=== PATIENT | male | born 1940 | race Caucasian/White ===

== ENCOUNTER 2017-03-11 12:37 | Inpatient (IN) ==
[2017-03-11] MEDS ORDERED: ONDANSETRON 4 MG/2 ML VIAL IV PRN (12:57)
[2017-03-11] MEDS ORDERED: ACETAMINOPHEN 325 MG TABLET PO PRN (12:57)
[2017-03-11] MEDS ORDERED: DOCUSATE SODIUM 100 MG CAPSULE PO PRN (12:57)
[2017-03-11 15:36] LABS: Basophils % 0.5 % (0.0-0.8); Eosinophils # 0.2 10*3/uL (0.0-0.87); Hematocrit 39.2 VOL% (42.0-52.0); Hemoglobin 12.7 GM/DL (14.0-18.0); Immature Granulocytes % 0.4 %; Immature Granulocytes Absolute 0.03 #; Lymphocytes # 1.3 10*3/uL (1.4-4.0); Lymphocytes % 16.3 % (21.2-54.2); Mean Corpuscular HGB Conc 32.4 GM/DL (32-36); Mean Corpuscular Hemoglobin 31 PG (27-34); Monocytes # 0.6 10*3/uL (0.11-0.8); Monocytes % 7.9 % (1.7-12.7); Neutrophils # 5.6 10*3/uL (1.4-7.4); Neutrophils % 72.9 % (38.7-73.9); Platelet Count 220 T/CUMM (130-400); Red Blood Count 4.04 MC/CUMM (3.8-5.5); Red Cell Distribution Width 15.6 % (9.3-17.3); White Blood Count 7.7 T/CUMM (4-12)
[2017-03-11 15:59] LABS: Bilirubin,Total 0.8 MG/DL (0.2-1.0); Calcium 8.6 MG/DL (8.5-10.1); Magnesium 2.5 MG/DL (1.8-2.4); Osmolality,Calculated 276.5 MOS/KG (273-304); Potassium 3.8 MMOL/L (3.5-5.1); Total Protein 6.8 G/DL (6.4-8.3)
[2017-03-11 16:01] LABS: Troponin I Only < 0.015 NG/ML (0.00-0.045)
[2017-03-11] MEDS: ENOXAPARIN 40 MG/0.4 ML SYRINGE SUBCUT SCH (16:06)
[2017-03-11 16:07] LABS: Folate 6.1 NG/ML (5.4-24.0)
[2017-03-11 16:15] LABS: Free T4 (Free Thyroxine) 0.81 NG/DL (0.76-1.46); Thyroid Stimulating Hormone 3.06 uIU/ml (0.358-3.74)
[2017-03-11] MEDS: POTASSIUM CHLORIDE INJ 10 MEQ in SODIUM CHLORIDE 0.9% 1,000 ML IV SCH (17:06)
[2017-03-11 17:32] LABS: Apearance,Urine CLEAR (Clear); Bilirubin,Urine Negative (Negative); Blood, Urine Negative (Negative); Glucose,Urine (UA) Negative (Negative); Ketones,Urine 20 mg/dL (Negative); Mucus,Urine Few /LPF (Occasional); Nitrite,Urine Negative (Negative); Protein,Urine Negative; RBC,Urine 1 /HPF (0-4); Squamous Epithelial Cell,Urine Occasional /HPF (0-10); Urine Color Yellow (Yellow); Urine Specific Gravity 1.014 (1.001-1.035); Urine Urobilinogen < 2.0 EU/DL (0.2-1.0); WBC,Urine 1 /HPF (0-6)
--- NOTE | 2017-03-11 17:38 | XRay Report ---
2 view chest. Indication: Shortness of breath. Comparison: The heart is normal in size. Post median sternotomy. The lung ramachandran are hyperexpanded. There are linear areas of atelectasis present in both lung bases. No consolidation, pneumothorax, or pleural effusion. Nodular densities project over the lung bases, likely representing nipple shadows. Impression: Hyperexpanded lung ramachandran, which may be due to air trapping. Areas of atelectasis are also seen. PROCEDURE INTERPRETED AT [facility] DEPARTMENT OF RADIOLOGY Final Report Signed by: Dr. Swetha Rosenberg
--- NOTE | 2017-03-11 17:58 | Family Practice History&Phys ---
Assessment and Plan (1) Confusion with non-focal neuro exam Status: Acute Assessment and plan: 03/11/2017 I am going to get neurology to see and appreciate their assistance Current Visit: Yes (2) S/P ventriculoperitoneal shunt Status: Acute Assessment and plan: 03/11/2017. I believe the shunt is functioning appropriately but will get neurology for further clarification Current Visit: Yes (3) Bronchiectasis Status: Acute Assessment and plan: 03/11/2017. Seems to be breathing easily I will continue on current medicines if he has any issues I will get Dr. 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 As above. I will go ahead and add meclizine to his regimen Current Visit: Yes History of Present Illness Chief complaint: Staggering, confused History of present illness: Mr. Lopez is a 76 year old male Who I have never seen. He was scheduled to see Dr. Johns on 613 this month. Nonetheless he came in today with his who stated that he has been confused and somewhat staggering and very wobbly for the past week or so. 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 He is unable to perform his activities of daily living as he normally does which has only occurred over the last several days. Historically he does hav a ventricular shunte which is working well per recent CT scan done in the emergency room. (Was seen this past weekend and all of his lab and studies were essentially normal, in addition to a CT of the head. His states that he has had and does have some occasional double vision but this is very equivocal. I do appreciate significant nystagmus when he looks to the left and or to the right. In addition he has got a slightly irregular heartbeat but an EKG done in the clinic revealed sinus arrhythmia. He is not in atrial fib at this time. (Will repeat an EKG in the hospital) Historically has had a history of coronary artery disease, hypertension, hypercholesterolemia as well as bronchitis and bronchiectasis and has been seen by Dr. Judah Aguilar. If he displays any of these symptoms I will get him to see him. At this time he is taking medication for this. Vital signs in the clinic were normal, blood pressure was 120/68, temperature 97.6, pulse 58, oxygen sats 94%. Because of his new onset symptoms I am going to admit him and get neurology to see him and I do appreciate their assistance on this case. I am getting lab as well Home Medications Medication Instructions Recorded Confirmed Type Losartan Potassium 200 mg PO BEDTIME 03/08/17 03/11/17 History Metoprolol Tartrate 50 mg PO BEDTIME 03/08/17 03/11/17 History Ondansetron Tab [Zofran Tab] 4 mg PO Q6H PRN #20 tablet 03/08/17 03/11/17 Rx Pravastatin Sodium 80 mg PO BEDTIME 03/08/17 03/11/17 History Tiotropium Inhalation [Spiriva 18 mcg INH QAM 03/08/17 03/11/17 History Handihaler] Allergies Allergy/AdvReac Type Severity Reaction Status Date / Time No Known Allergies Allergy Unverified 03/08/17 09:23 12 point system: reviewed and no additional remarkable complaints except as stated (That mentioned in the history and physical.) - EENT Eyes: Present: diplopia Nose, mouth and throat: Absent: epistaxis - Cardiovascular Cardiovascular: Absent: chest pain at rest - Respiratory Respiratory: Present: cough (This is chronic) - Genitourinary Genitourinary: Absent: dysuria - Neurological Neurological: Present: abnormal gait, confusion. Absent: headache(s) Medical,Surgical,& Family Hx - Medical History Cardio: History of: Cerebrovascular Disease, Cardiovascular Problems HEENT: History of: Eye Problem Endocrine: History of: Dyslipidemia Respiratory: History of: COPD Other: History of: Cancer (skin cancer) - Surgical History Cardiac Surgeries: Sugical HX of: Femoral-Popliteal Bypass Graft, Cardiac Surgery (triple bypass) HEENT Surgeries: Surgical HX of: Tonsilectomy & Adenoidectomy Abdominal Surgeries: Surgical HX of: Abdominal Surgery (right colectomy), Colonoscopy - Social History Smoking Status: Former smoker Exam - Constitutional Vitals: Period Temp Pulse Resp BP Sys/Covarrubias Pulse Ox Last 24 Hr 97.4 F-98.0 F 63-83 18-20 133-136/71-71 93-95 Exam: Generally patient is able to answer all questions in a fairly cognitive state. He is a little bit slow but with encouragement answers appropriately. Has generalized mild weakness but is able to follow all commands and able to ambulate with assistance. It is hard to art librarian cerebellar findings at this time. HEEntpupils are equally reactive to light. He does have nystagmus when he looks both to the right and left. Obvious on cranial nerve deficits are appreciated I do not see any drooping of his face and he has good gag and swallow reflexes.. He is able to cough on command and has good shrug. Neck is supple trachea midline Cardiovascular rate is irregular but is sinus rhythm per EKG. Lungs are generally clear except for a few basilar rales. I do not appreciate any wheezing at this time. He does have an occasional loose cough. Abdomen soft nondistended nontender. There is a ventriculoperitoneal shunt which is apparently functioning well as he has no enlarged ventricles. Extremities no clubbing cyanosis or edema. Neurologically he is somewhat wobbly on gait but is able to get up with only little assistance. Please see above but he has no obvious cranial nerve deficits at this time. I do not appreciate any lateralizing signs Results - Labs CBC & BMP: 03/11/17 14:43 03/11/17 14:43
[2017-03-11] MEDS: MECLIZINE 25 MG TABLET PO SCH (21:11)
[2017-03-11] MEDS: LOSARTAN 50 MG TABLET PO SCH (21:13)
[2017-03-11] MEDS: PRAVASTATIN 40 MG TABLET PO SCH (21:13)
[2017-03-11] MEDS: METOPROLOL TARTRATE 50 MG TABLET PO SCH (21:13)
--- NOTE | 2017-03-12 04:47 | EKG Report ---
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
[2017-03-12] MEDS: POTASSIUM CHLORIDE INJ 10 MEQ in SODIUM CHLORIDE 0.9% 1,000 ML IV SCH ×2 (06:30→19:38)
[2017-03-12] MEDS: IPRATROPIUM 500 MCG/2.5 ML NEB RESP TX SCH ×4 (07:21→19:52)
[2017-03-12] MEDS: MECLIZINE 25 MG TABLET PO SCH ×2 (08:36→21:10)
[2017-03-12] MEDS: PANTOPRAZOLE 40 MG TABLET PO SCH (08:36)
[2017-03-12] MEDS: MULTIVITAMIN (CENTRUM) TABLET PO SCH (08:36)
--- NOTE | 2017-03-12 08:41 | Family Practice Progress Note ---
Family Practice - PN: Subj Interval history: Patient seen this morning. He is fairly alert. Does have intermittent confusion. He does also have some nystagmus on exam but not having double vision at present. Is "not himself" yet per his . His lab was noted to be okay. I am going to get neurology to see him today for advice regarding shunt functioning properly. states that this was the problem before when he got confused and had similar problems. Does have a chronic cough but she states this is pretty much baseline at present. I am going to hold off respiratory at this time. Exam (Progress Note) - Constitutional Vitals: Period Temp Pulse Resp BP Sys/Covarrubias Pulse Ox Last 24 Hr 97.4 F-98.5 F 56-83 18-20 133-149/71-79 93-97 Exam: Generally patient is able to answer all questions. He continues a little bit slow. Has generalized mild weakness . HEEntpupils are equally reactive to light. He continues to have nystagmus when he looks both to the right and left. No obvious on cranial nerve deficits are appreciated. He is able to cough on command and has good shrug. Neck is supple trachea midline Cardiovascular rate is irregular but is sinus rhythm per EKG. Lungs are generally clear except for a few basilar rales. He does have an occasional loose cough. Abdomen soft nondistended nontender. There is a ventriculoperitoneal shunt which is questionably functioning well as he has no enlarged ventricles. Extremities no clubbing cyanosis or edema. Neurologically he is somewhat wobbly on gait but is able to get up with only little assistance. Please see above but he has no obvious cranial nerve deficits at this time. I do not appreciate any lateralizing signs Results - Labs CBC & BMP: 03/11/17 14:43 03/11/17 14:43 Assessment and Plan (1) Confusion with non-focal neuro exam Status: Acute Assessment and plan: 03/11/2017 I am going to get neurology to see and appreciate their assistance 03/12/2017: Neurology to see patient Current Visit: Yes (2) S/P ventriculoperitoneal shunt Status: Acute Assessment and plan: 03/11/2017. I believe the shunt is functioning appropriately but will get neurology for further clarification 03/12/2017: Going to get neurology for further clarification of this. Recent CT was normal without ventricular enlargement Current Visit: Yes (3) Bronchiectasis Status: Acute Assessment and plan: 03/11/2017. Seems to be breathing easily I will continue on current medicines if he has any issues I will get Dr. 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 As above. I will go ahead and add meclizine to his regimen 03/12/2017: Patient continues to have nystagmus this morning. He is not having any diplopia Current Visit: Yes
[2017-03-12] MEDS: ENOXAPARIN 40 MG/0.4 ML SYRINGE SUBCUT SCH (13:56)
--- NOTE | 2017-03-12 15:43 | Neurology Consult Note ---
History of Present Illness History of present illness: Mr. 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 He states that he is normally very active, plays ping-pong and typically drives himself to the [employer]oodoo. He is unable to perform his activities of daily living as he normally does which has only occurred over the last several days. Historically he does have a ventricular shunt which is working well per recent CT scan done in the emergency room couple of days ago. Was seen this past weekend and all of his lab and studies were essentially normal, in addition to a CT of the head. She reported that he has been having off and on double vision. In addition he has got a slightly irregular heartbeat but an EKG done in the clinic revealed sinus arrhythmia. Home Medications Medication Instructions Recorded Confirmed Type Losartan Potassium 200 mg PO BEDTIME 03/08/17 03/11/17 History Metoprolol Tartrate 50 mg PO BEDTIME 03/08/17 03/11/17 History Ondansetron Tab [Zofran Tab] 4 mg PO Q6H PRN #20 tablet 03/08/17 03/11/17 Rx Pravastatin Sodium 80 mg PO BEDTIME 03/08/17 03/11/17 History Tiotropium Inhalation [Spiriva 18 mcg INH QAM 03/08/17 03/11/17 History Handihaler] Allergies Allergy/AdvReac Type Severity Reaction Status Date / Time No Known Allergies Allergy Unverified 03/08/17 09:23 12 point system: reviewed and no additional remarkable complaints except as stated Medical,Surgical,& Family Hx - Medical History Cardio: History of: Cerebrovascular Disease, Cardiovascular Problems HEENT: History of: Eye Problem Endocrine: History of: Dyslipidemia Respiratory: History of: COPD Other: History of: Cancer (skin cancer) - Surgical History Cardiac Surgeries: Sugical HX of: Femoral-Popliteal Bypass Graft, Cardiac Surgery (triple bypass) HEENT Surgeries: Surgical HX of: Tonsilectomy & Adenoidectomy Abdominal Surgeries: Surgical HX of: Abdominal Surgery (right colectomy), Colonoscopy - Social History Smoking Status: Former smoker Exam - Constitutional Vitals: Period Temp Pulse Resp BP Sys/Covarrubias Pulse Ox Last 24 Hr 97.4 F-98.5 F 51-84 16-20 120-149/63-86 91-99 Exam: GENERAL: Patient is in no acute distress. NECK: Neck is supple. There is no JVD. No carotid bruits present. No thyroid masses. CVS: First and second heart sounds are normal. There is no S3 present. Regular rate and rhythm. RESPIRATORY: Lungs are clear to auscultation without any rales or rhonchi. ABDOMEN: Soft and non-tender. Bowel sounds are present. There is no hepatosplenomegaly. EXT: There is no palpable edema. Peripheral pulses are present. Skin: No rashes Central Nervous system: General: Alert, awake and Oriented x 3 Speech: Fluent Comprehension: Intact and normal Facial expressions: Normal Cranial Nerves: CN1/Olfactory: Normal CN II/ Optic: Normal, Visual Irving unreliable CN III, and : AILYN & EOMI, bilateral horizontal sustained end gaze nystagmus CN V: Normal & intact CN VII: face is symmetric CNVIII: Normal CN XI/X/XI/XII: Intact and Normal Motor: Bulk and Tone is normal. Strength in the right 5/5 Strength in the left 5/5 Sensory: Grossly intact for all the modalities of PP, LT and temp sense Reflexes: 1+ and symmetrical Cerebellar function: Normal finger to nose and heel to silva testing. Toes: Equivocal Gait: Markedly broad-based gait. Significant ataxia during walking Results - Labs CBC & BMP: 03/11/17 14:43 03/11/17 14:43 Assessment and Plan (1) Cerebrovascular accident involving posterior circulation Status: Acute Assessment and plan: Xarelto [address] angiogram [place] and carotid artery Lipid panel OLVIN Consult TMR Thank you for the consult Current Visit: Yes (2) S/P ventriculoperitoneal shunt Status: Acute Current Visit: Yes
[2017-03-12] MEDS ORDERED: CYANOCOBALAMIN 1000 MCG/1 ML VIAL IM SCH (16:00)
[2017-03-12] MEDS: RIVAROXABAN 20 MG TABLET PO SCH (17:17)
[2017-03-12 20:03] LABS: Risk Ratio 4.55; VLDL CHOLESTEROL 16.6 MG/DL
[2017-03-12] MEDS: PRAVASTATIN 40 MG TABLET PO SCH (21:12)
[2017-03-12] MEDS: METOPROLOL TARTRATE 50 MG TABLET PO SCH (21:12)
[2017-03-12] MEDS: LOSARTAN 50 MG TABLET PO SCH (21:14)
[2017-03-13] MEDS: IPRATROPIUM 500 MCG/2.5 ML NEB RESP TX SCH ×4 (07:04→20:29)
--- NOTE | 2017-03-13 07:12 | CT Report ---
CT head/brain wo con Indication: CVA Comparison: CT brain dated March 08, 2017 Technique: Multiple axial tomographic images of the brain were obtained without the use of intravenous contrast. Findings: Parietal approach ventriculostomy catheter appears grossly unchanged. Considering change in technique, there has been no significant change in mild prominence of bilateral lateral and third ventricles. Moderate periventricular and subcortical hypoattenuation noted which is nonspecific but consistent with chronic microvascular ischemic change. Demyelinating process and vasculitis less likely considerations. There is no evidence of acute intracranial hemorrhage or hydrocephalus. Moderate global volume loss present. Midline structures are nondisplaced. Partial opacification of the bilateral maxillary sinuses consistent with paranasal sinus disease. IMPRESSION: No significant change from March 08, 2017 with findings as above. The CT exam was performed using one or more of the following dose reduction techniques: Automated exposure control, adjustment of the mA and/or kV according to patient size, or use of iterative reconstruction technique. PROCEDURE INTERPRETED AT [facility] DEPARTMENT OF RADIOLOGY Final Report Signed by: Dr Amol Jewell
--- NOTE | 2017-03-13 09:22 | Neurology Progress Note ---
Neurology - PN : Subjective Interval history: Patient seems to be doing better. Able to get up and take a few steps. No new problems reported. CT angiogram and echocardiogram is pending Exam (Progress Note) - Constitutional Vitals: Period Temp Pulse Resp BP Sys/Covarrubias Pulse Ox Last 24 Hr 97.3 F-98.5 F 53-84 16-20 116-139/63-78 95-99 Exam: GENERAL: Patient is in no acute distress. NECK: Neck is supple. There is no JVD. No carotid bruits present. No thyroid masses. CVS: First and second heart sounds are normal. There is no S3 present. Regular rate and rhythm. RESPIRATORY: Lungs are clear to auscultation without any rales or rhonchi. ABDOMEN: Soft and non-tender. Bowel sounds are present. There is no hepatosplenomegaly. EXT: There is no palpable edema. Peripheral pulses are present. Skin: No rashes Central Nervous system: General: Alert, awake and Oriented x 3 Speech: Fluent Comprehension: Intact and normal Facial expressions: Normal Cranial Nerves: CN1/Olfactory: Normal CN II/ Optic: Normal, Visual Irving unreliable CN III, and : AILYN & EOMI, bilateral horizontal sustained end gaze nystagmus CN V: Normal & intact CN VII: face is symmetric CNVIII: Normal CN XI/X/XI/XII: Intact and Normal Motor: Bulk and Tone is normal. Strength in the right 5/5 Strength in the left 5/5 Sensory: Grossly intact for all the modalities of PP, LT and temp sense Reflexes: 1+ and symmetrical Cerebellar function: Normal finger to nose and heel to silva testing. Toes: Equivocal Gait: Markedly broad-based gait. Significant ataxia during walking Results - Labs CBC & BMP: 03/11/17 14:43 03/11/17 14:43 Assessment and Plan (1) Cerebrovascular accident involving posterior circulation Status: Acute Assessment and plan: Xarelto [address] mg p[address] daily For CT angiogram and OLVIN today. For TMR placement by Thursday Current Visit: Yes (2) S/P ventriculoperitoneal shunt Status: Acute Assessment and plan: This was placed in 1980s and shunt seems to be working well Current Visit: Yes
--- NOTE | 2017-03-13 09:30 | Discharge Summary ---
Hospital Course - Hospital Course Hospital Course: Patient came in to the hospital from my clinic with a change in his mental status and also the fact that he was having some unsteady gait. He had had a cerebellar stroke. He has been doing fairly well since then and just had a OLVIN done, CT angiogram of head pending. We will try to get him to [facility] entered I am doing my discharge orders now. 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 Status: Chronic Specialty Discharge - Follow Up or Referrals Follow up with: Joel Cruz DO [Physician] - (post dischaarge from rehab ) Saw Hinojosa MD [Physician] - (6 months ) Discharge Plan - Discharge Data Disposition: Disch/Xfer-Ip Rehab Fac Condition at Discharge: Stable Discharge Diet: other (per speech therapy) Activity: as per physical therapy Hygiene: no restrictions Weight Bearing at Discharge: weight bear as tolerated Driving: other Contact your physician if you experience:: Redness or swelling, Bleeding - Discharge Medications New Docusate Sodium Cap [Colace Cap] 100 mg PO BID PRN capsule PRN Reason: Constipation Ondansetron Inj [Zofran Inj] 4 mg IV Q6H PRN vial PRN Reason: Nausea/Vomiting Rivaroxaban [Xarelto] 20 mg PO DAILY W/SUPPER tablet Cyanocobalamin Inj [Vitamin B12 Inj] 1,000 mcg IM Q7DAY vial Multivitamin (Centrum) [Centrum Tab] 1 tablet PO DAILY tablet Continue Pravastatin Sodium 80 mg PO BEDTIME Losartan Potassium 200 mg PO BEDTIME Tiotropium Inhalation [Spiriva Handihaler] 18 mcg INH QAM Metoprolol Tartrate 50 mg PO BEDTIME Ondansetron Tab [Zofran Tab] 4 mg PO Q6H PRN #20 tablet PRN Reason: Vomiting - Follow Up or Referral Follow Up: Joel Cruz DO [Physician] - (post dischaarge from rehab ) Saw Hinojosa MD [Physician] - (6 months ) - Forms/Instructions Exam - Constitutional Vitals: Period Temp Pulse Resp BP Sys/Covarrubias Pulse Ox Last 24 Hr 97.3 F-98.5 F 53-84 16-20 116-139/63-78 95-99 Exam: Patient is stable at this time. Status post CT of the head with angioplasty and HEENT neck is supple trachea midline Cardiovascular rate regular no gallop or rub Lungs clear except for mild occasional cough Abdomen soft nondistended Extremities no clubbing cyanosis or edema Discharge Results Procedures and tests throughout hospitalization: Pending Orders 03/13/17 07:26 US carotid duplex BI Stat Labs on day of discharge: Labs from last 24 hours 03/12/17 18:36 Triglycerides 83 Cholesterol 132 LDL Cholesterol 98.0 VLDL Cholesterol 16.6 HDL Cholesterol 29 L Heart Disease Risk Ratio 4.55 DS: Provider Date of admission: 03/11/17 12:57 Primary care physician: Reed Quiles MD Attending physician on admission: Joel Cruz DO Consults: 03/11/17 12:58 Consult to Case Mgmt/Social Srvs [CONS] Routine Reason for Case Mgmt/Social Srvs: Discharge Planning 03/11/17 14:23 Consult to Dietitian [CONS] Routine Reason for Dietitian: Dietary Consult Consult to Pastoral Services [CONS] Routine Comment: Pastoral Screen: Declines Visit Pastoral Screen Source of Request: Family 03/11/17 17:52 Consult to Physician [CONS] Routine Comment: Confusion, staggering Consulting Provider: Jose Antonio Hdez 03/12/17 07:56 Consult to Occupational Therapy [CONS] Routine Reason for Occupational Therapy: Evaluate and Treat Consult to Physical Therapy [CONS] Routine Reason for Physical Therapy: Evaluate and Treat 03/12/17 15:46 Consult to Case Mgmt/Social Srvs [CONS] Routine Reason for Case Mgmt/Social Srvs: Rehab Discharging clinician: Joel Cruz DO
--- NOTE | 2017-03-13 10:12 | Ultrasound Report ---
History: CVA Date: 03/13/2017 Study: Carotid duplex ultrasound Comparison exam: September 24, 2009 Color Doppler, wave form analysis, and grayscale analysis of the cervical carotid arteries was performed. There is a moderate amount of calcified plaque in either carotid bulb. Waveform analysis shows proper directional flow of the cervical carotid arteries. There is antegrade flow in either vertebral artery. The distal right ICA measures 3.4 mm diameter; the left measures 5.2 mm diameter. Peak systolic velocities are as follows: Right CCA 58 cm/s Right ICA 94 cm/s Right ECA 116 cm/s Right vertebral 26 cm/s Right IC/CC ratio 1.6 Left CCA 77 cm/s Left ICA 73 cm/s Left ECA 73 cm/s Left vertebral 38 cm/s Left IC/CC ratio 0.9 There is 0-49 % diameter reduction narrowing of either internal carotid artery using indirect NASCET criteria. Ultrasound images were captured and archived. Impression: No hemodynamically significant internal carotid artery stenosis PROCEDURE INTERPRETED AT [facility] DEPARTMENT OF RADIOLOGY Final Report Signed by: Dr. Nkechi Mullen
[2017-03-13] MEDS: MULTIVITAMIN (CENTRUM) TABLET PO SCH (10:50)
[2017-03-13] MEDS: PANTOPRAZOLE 40 MG TABLET PO SCH (10:50)
[2017-03-13] MEDS: MECLIZINE 25 MG TABLET PO SCH ×2 (10:50→22:03)
[2017-03-13] MEDS: POTASSIUM CHLORIDE INJ 10 MEQ in SODIUM CHLORIDE 0.9% 1,000 ML IV SCH (11:11)
--- NOTE | 2017-03-13 13:09 | Family Practice Progress Note ---
Family Practice - PN: Subj Interval history: Patient was seen today. Patient is requiring a transesophageal echocardiogram and also will require a CT angiogram of the head [place] of [place] and carotids. We will going to get this done so that he can be discharged to rehab this unit this coming Thursday. He is stable hemodynamically. No fever chills nausea vomiting or diarrhea does have a mild cough periodically. (This is fairly chronic for him.) His and son are in the room and we have discussed this with him. They are in full agreement at this time. Patient has had no changes overall. Remains weak and does require assistance to the bathroom and with standing. Exam (Progress Note) - Constitutional Vitals: Period Temp Pulse Resp BP Sys/Covarrubias Pulse Ox Last 24 Hr 97.3 F-98.7 F 53-83 16-20 116-139/64-78 95-99 Exam: Generally patient is able to answer all questions. He continues a little bit slow. Has generalized mild weakness . HEEntpupils are equally reactive to light. He is able to cough Neck is supple trachea midline Cardiovascular rate is irregular but is sinus rhythm per EKG. Lungs are generally clear except for a few basilar rales. He does have an occasional loose cough. Abdomen soft nondistended nontender. Ventricular peritoneal shunt in place Extremities no clubbing cyanosis or edema. Neurologically he is somewhat wobbly on gait but is able to get up with some assistance. no obvious cranial nerve deficits at this time. No lateralizing signs Results - Labs CBC & BMP: 03/11/17 14:43 03/11/17 14:43 Assessment and Plan (1) Confusion with non-focal neuro exam Status: Acute Assessment and plan: 03/11/2017 I am going to get neurology to see and appreciate their assistance 03/12/2017: Neurology to see patient Current Visit: Yes (2) S/P ventriculoperitoneal shunt Status: Chronic Assessment and plan: 03/11/2017. I believe the shunt is functioning appropriately but will get neurology for further clarification 03/12/2017: Going to get neurology for further clarification of this. Recent CT was normal without ventricular enlargement Current Visit: Yes (3) Bronchiectasis Status: Acute Assessment and plan: 03/11/2017. Seems to be breathing easily I will continue on current medicines if he has any issues I will get Dr. 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 As above. I will go ahead and add meclizine to his regimen 03/12/2017: Patient continues to have nystagmus this morning. He is not having any diplopia Current Visit: Yes Specialty Discharge - Follow Up or Referrals Follow up with: Joel Cruz DO [Physician] - (post dischaarge from rehab )
--- NOTE | 2017-03-13 15:11 | Cardiology Consult Note ---
Eric Childers Vanessa, RN, am scribing for, and in the presence of, Saw Hinojosa MD 15:11. Assessment and Plan - Time spent with patient Time spent with patient: Greater than 30 minutes (due to assessment, planning, documentation, and medication review) (1) Cerebrovascular accident involving posterior circulation Status: Acute Assessment and plan: He is stable post acute CVA. Echocardiogram has been obtained, and cardiology is consulted to see patient for transesophageal echocardiogram to evaluate for possible embolic source for CVA. Xarelto therapy initiated on March 12. 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 We will continue as present. Current Visit: Yes (5) Dyslipidemia Status: Chronic Assessment and plan: Statin has been continued. Fasting lipid panel March 12 unremarkable. Current Visit: Yes (6) CAD (coronary artery disease) Status: Chronic Assessment and plan: No clinical findings for acute coronary syndrome. Beta-shaina, statin are continued. Current Visit: Yes (7) History of coronary artery bypass graft Status: Chronic Assessment and plan: This appears stable. 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 FRANCO CARDIOLOGY CONSULT NOTE: EVALUATE FOR TRANSESOPHAGEAL ECHOCARDIOGRAM Mr. Lopez is a 76-year-old white male with risk factors significant for: Age, hypertension, hyperlipidemia known CAD. Past medical history include coronary artery bypass grafting in 2008 and GANDY DANCER shunt placed in 1979 and 1996. Mr. Lopez was previously followed by Dr. Reed Quiles for cardiology, and is now followed by Dr. Franco for [facility] cardiology. Patient is now admitted directly from Dr. Cruz's office on March 11 for workup and evaluation of confusion, unsteady gait, and inability to perform ADLs as he has normally done this very well and independently, including driving, up until the past week or so prior to presentation. Patient has also had some vision disturbances, and he describes it as being "positional". He reports that if he turns his head to the right, he has double vision, but when turning head to the left, patient is normal. Diagnostic workup has revealed patient has had a CVA involving posterior circulation. He has been seen and evaluated by neurology, Dr. Hdez. His course of admission has been stable, and patient is now eligible for discharge to [facility] rehab facility for further treatment. Cardiology has been consulted to see patient for transesophageal echocardiogram to rule out embolic source for CVA. 2D echocardiogram was also earlier earlier this morning, and we will review when this is available. Patient was initiated on Xarelto 20 mg by mouth daily on the evening of March 12. Patient seen and examined. Multiple family members present at bedside with patient. Patient is in no acute distress, and he is eating regular diet for lunch with great appetite. No recent or current chest pain, shortness of breath , orthopnea, PND, palpitations, or other anginal complaint. Blood pressure stable with systolic BP range 120-140 mmHg. Twelve-lead EKG with sinus rhythm, pulse rate 60s, no acute ST segment change, but does have occasional PVCs. He will be for transesophageal echo early next week as he is eaten today and unfortunately we do not have anyone in the hospital who does transesophageal echo. We will continue as currently. CC: Joel Cruz, DO - Home Medications and Allergies Home Medications: Home Medications Medication Instructions Recorded Confirmed Type Losartan Potassium 200 mg PO BEDTIME 03/08/17 03/11/17 History Metoprolol Tartrate 50 mg PO BEDTIME 03/08/17 03/11/17 History Ondansetron Tab [Zofran Tab] 4 mg PO Q6H PRN #20 tablet 03/08/17 03/11/17 Rx Pravastatin Sodium 80 mg PO BEDTIME 03/08/17 03/11/17 History Tiotropium Inhalation [Spiriva 18 mcg INH QAM 03/08/17 03/11/17 History Handihaler] Cyanocobalamin Inj [Vitamin B12 1,000 mcg IM Q7DAY vial 03/13/17 Rx Inj] Docusate Sodium Cap [Colace Cap] 100 mg PO BID PRN capsule 03/13/17 Rx Multivitamin (Centrum) [Centrum 1 tablet PO DAILY tablet 03/13/17 Rx Tab] Ondansetron Inj [Zofran Inj] 4 mg IV Q6H PRN vial 03/13/17 Rx Rivaroxaban [Xarelto] 20 mg PO DAILY W/SUPPER tablet 03/13/17 Rx Allergies/Adverse Reactions: Allergies Allergy/AdvReac Type Severity Reaction Status Date / Time No Known Allergies Allergy Unverified 03/08/17 09:23 - Constitutional Constitutional: Present: as per HPI - EENT Eyes: Present: as per HPI Ears: Present: as per HPI Nose, mouth and throat: Present: as per HPI - Cardiovascular Cardiovascular: Present: as per HPI - Respiratory Respiratory: Present: as per HPI - Gastrointestinal Gastrointestinal: Present: as per HPI - Genitourinary Genitourinary: Present: as per HPI - Musculoskeletal Musculoskeletal: Present: as per HPI - Neurological Neurological: Present: as per HPI - Psychiatric Psychiatric: Present: as per HPI - Endocrine Endocrine: Present: as per HPI - Hematologic/Lymphatic Hematologic/Lymphatic: Present: as per HPI Medical,Surgical,& Family Hx - Medical History Cardio: History of: Cerebrovascular Disease, CAD, Hypertension, Cardiovascular Problems Neurology: History of: Cerebrovascular Accident, Vertigo No history of: Dementia, TIA HEENT: History of: Eye Problem Endocrine: History of: Dyslipidemia No history of: Diabetes Mellitus (IDDM), Diabetes Mellitus (NIDDM), Thyroid Disorder Respiratory: History of: COPD No history of: Obstructive Sleep Apnea Gastrointestinal: No history of: GERD Other: History of: Cancer (skin cancer) - Surgical History Cardiac Surgeries: Sugical HX of: Femoral-Popliteal Bypass Graft, Cardiac Catheterization, Cardiac Surgery (triple bypass) HEENT Surgeries: Surgical HX of: Tonsilectomy & Adenoidectomy Abdominal Surgeries: Surgical HX of: Abdominal Surgery (right colectomy), Colonoscopy - Social History Smoking Status: Former smoker Physical Examination Vital Signs Temp Pulse Resp BP Pulse Ox 97.4 F L 63 18 136/71 95 03/11/17 14:20 03/11/17 14:20 03/11/17 14:20 03/11/17 14:20 03/11/17 14:20 General: Present: No Apparent Distress HEENT: Present: Normocephaly, Mucus Membranes Moist Neck: Present: Supple Neck, Midline Trachea, No JVD/HJR, No Masses, No Bruit Cardiac: Present: Irregularly Regular, No Murmur. Absent: Tachycardia, Bradycardia Lungs: Present: Clear Ascult./Percussion, No Wheeze, Rales, Rhonchi. Absent: Oxygen Neuro: Present: Weakness. Absent: Numbness, Tingling, Resting Tremor Abdomen: Present: Soft, Active Bowel Sounds, No Masses. Absent: Ascites, Tender , Firm, Distended Skin: Present: Clear. Absent: Rash, Suspicious Lesions Extremities: Present: No Clubbing, No Cyanosis, No Edema, Normal Upper Extr. Pulses (2-3+ bilaterally), Normal Lower Extr. Pulses (2+ bilaterally), Capillary Refill (Normal) Result/EKG - Labs CBC & BMP: 03/11/17 14:43 03/11/17 14:43 Lab Results: I have reviewed the past 24 hour labs Labs: Laboratory Results - last 24 hr 03/12/17 18:36 Triglycerides 83 Cholesterol 132 LDL Cholesterol 98.0 VLDL Cholesterol 16.6 HDL Cholesterol 29 L Heart Disease Risk Ratio 4.55 - Diagnostic Findings Procedure: Chest x-ray: image reviewed by me, report reviewed by me - EKG EKG results: interpreted by me, no acute changes EKG shows: sinus rhythm (Occasional PVCs) Specialty Discharge - Follow Up or Referrals Follow up with: Joel Cruz DO [Physician] - (post dischaarge from rehab ) IAshish Wesley, MD, personally performed the services described in this documentation, ascribed by Yuliana Reyes RN in my presence, and it is both accurate and complete 511 .
[2017-03-13] MEDS: RIVAROXABAN 20 MG TABLET PO SCH (16:49)
[2017-03-13] MEDS: METOPROLOL TARTRATE 50 MG TABLET PO SCH (22:02)
[2017-03-13] MEDS: LOSARTAN 50 MG TABLET PO SCH (22:02)
[2017-03-13] MEDS: PRAVASTATIN 40 MG TABLET PO SCH (22:03)
[2017-03-14] MEDS: POTASSIUM CHLORIDE INJ 10 MEQ in SODIUM CHLORIDE 0.9% 1,000 ML IV SCH ×2 (00:45→13:49)
[2017-03-14 06:13] LABS: Basophils # 0.1 10*3/uL (0.0-0.2); Basophils % 0.8 % (0.0-0.8); Eosinophils # 0.5 10*3/uL (0.0-0.87); Eosinophils % 7.6 % (0.00-10.9); Hematocrit 35.9 VOL% (42.0-52.0); Hemoglobin 11.6 GM/DL (14.0-18.0); Immature Granulocytes % 0.3 %; Immature Granulocytes Absolute 0.02 #; Lymphocytes # 1.3 10*3/uL (1.4-4.0); Lymphocytes % 20.7 % (21.2-54.2); Mean Corpuscular HGB Conc 32.3 GM/DL (32-36); Mean Corpuscular Hemoglobin 31 PG (27-34); Mean Corpuscular Volume 95.2 FL (87-102); Mean Platelet Volume 9.7 FL (9.6-12.0); Monocytes # 0.6 10*3/uL (0.11-0.8); Monocytes % 8.9 % (1.7-12.7); Neutrophils # 3.9 10*3/uL (1.4-7.4); Neutrophils % 61.7 % (38.7-73.9); Platelet Count 174 T/CUMM (130-400); Red Blood Count 3.77 MC/CUMM (3.8-5.5); Red Cell Distribution Width 15.8 % (9.3-17.3); White Blood Count 6.3 T/CUMM (4-12)
[2017-03-14] MEDS: IPRATROPIUM 500 MCG/2.5 ML NEB RESP TX SCH ×4 (07:11→19:34)
[2017-03-14 07:27] LABS: Calcium 8.1 MG/DL (8.5-10.1); Magnesium 2.2 MG/DL (1.8-2.4); Osmolality,Calculated 281.1 MOS/KG (273-304); Potassium 3.8 MMOL/L (3.5-5.1)
--- NOTE | 2017-03-14 09:31 | Cardiology Progress Note ---
Assessment and Plan (1) Cerebrovascular accident involving posterior circulation Status: Acute Assessment and plan: He is stable post acute CVA. Echocardiogram has been obtained, and cardiology is consulted to see patient for transesophageal echocardiogram to evaluate for possible embolic source for CVA. Xarelto therapy initiated on March 12. 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 We will continue as present. Current Visit: Yes (5) Dyslipidemia Status: Chronic Assessment and plan: Statin has been continued. Fasting lipid panel March 12 unremarkable. Current Visit: Yes (6) CAD (coronary artery disease) Status: Chronic Assessment and plan: No clinical findings for acute coronary syndrome. Beta-shaina, statin are continued. Current Visit: Yes (7) History of coronary artery bypass graft Status: Chronic Assessment and plan: This appears stable. Current Visit: Yes Cardiology - PN: Subj Interval history: The patient continues cardiac stable without complaints currently. He actually looks a little more alert and is sitting up in the bed more conversant today. He denies pain or problems. He is for a OLVIN on Thursday. Exam (Progress Note) - Constitutional Vitals: Period Temp Pulse Resp BP Sys/Covarrubias Pulse Ox Last 24 Hr 97.6 F-98.7 F 59-87 18-22 124-166/65-76 90-99 Exam: General:no acute distress. alert and oriented, mood and affect are normal HEENT: no new lesions, sclerae are clear, mouth and pharynx benign Neck: supple, trachea midline, no JVD noted Lungs: no rales ronchi or wheeze is noted. pt comfortable without accesory muscle use to assist with breathing CV: RRR no murmur rub or gallop is noted. Abd: soft and nontender, BSNA, no masses. Ext: no cyanosis, clubbing or edema Neuro: grossly intact without focal neurologic deficit. Result/EKG - Labs CBC & BMP: 03/14/17 05:55 03/14/17 05:55 Labs: Laboratory Results - last 24 hr 03/14/17 03/14/17 05:55 05:55 WBC 6.3 RBC 3.77 L Hgb 11.6 L Hct 35.9 L MCV 95.2 MCH 31 MCHC 32.3 RDW 15.8 Plt Count 174 D MPV 9.7 Neut % (Auto) 61.7 Lymph % (Auto) 20.7 L Woods % (Auto) 8.9 Eos % (Auto) 7.6 Baso % (Auto) 0.8 Neut # (Auto) 3.9 Lymph # (Auto) 1.3 L Woods # (Auto) 0.6 Eos # (Auto) 0.5 Baso # (Auto) 0.1 Immature Gran % 0.3 Nucleated RBC % 0.0 Immature Gran # 0.02 Nucleated RBCs # 0.00 Sodium 142 Potassium 3.8 Chloride 107 Carbon Dioxide 26 Anion Gap 12.8 BUN 9 Creatinine 0.80 GFR Calculation 111 BUN/Creatinine Ratio 11.00 Glucose 90 Calculated Osmolality 281.1 Calcium 8.1 L Magnesium 2.2 Specialty Discharge - Follow Up or Referrals Follow up with: Joel Cruz DO [Physician] - (post dischaarge from rehab )
[2017-03-14] MEDS: MULTIVITAMIN (CENTRUM) TABLET PO SCH (09:50)
[2017-03-14] MEDS: PANTOPRAZOLE 40 MG TABLET PO SCH (09:50)
[2017-03-14] MEDS: MECLIZINE 25 MG TABLET PO SCH ×2 (09:50→20:05)
--- NOTE | 2017-03-14 10:02 | Family Practice Progress Note ---
Family Practice - PN: Subj Interval history: Family feels that patient is improved today. They feel that he is walking better and is more alert. Patient denies any new complaints. Carotid Dopplers were normal. His echo is scheduled for Thursday. His physical exam remains stable. Reviewed lab studies which are stable. Encouraged her family to help patient ambulate up in chair as much as possible. Exam (Progress Note) - Constitutional Vitals: Period Temp Pulse Resp BP Sys/Covarrubias Pulse Ox Last 24 Hr 97.6 F-98.7 F 59-87 18-22 124-166/65-76 90-99 Results - Labs CBC & BMP: 03/14/17 05:55 03/14/17 05:55 Specialty Discharge - Follow Up or Referrals Follow up with: Joel Cruz DO [Physician] - (post dischaarge from rehab )
[2017-03-14] MEDS: RIVAROXABAN 20 MG TABLET PO SCH (17:27)
[2017-03-14] MEDS: METOPROLOL TARTRATE 50 MG TABLET PO SCH (20:05)
[2017-03-14] MEDS: PRAVASTATIN 40 MG TABLET PO SCH (20:05)
[2017-03-14] MEDS: LOSARTAN 50 MG TABLET PO SCH (20:05)
[2017-03-15 05:16] LABS: Basophils % 0.6 % (0.0-0.8); Eosinophils # 0.5 10*3/uL (0.0-0.87); Eosinophils % 7.3 % (0.00-10.9); Hematocrit 38.2 VOL% (42.0-52.0); Hemoglobin 12.2 GM/DL (14.0-18.0); Immature Granulocytes % 0.1 %; Immature Granulocytes Absolute 0.01 #; Lymphocytes # 1.5 10*3/uL (1.4-4.0); Lymphocytes % 20.9 % (21.2-54.2); Mean Corpuscular HGB Conc 31.9 GM/DL (32-36); Mean Corpuscular Hemoglobin 31 PG (27-34); Mean Corpuscular Volume 95.7 FL (87-102); Mean Platelet Volume 9.4 FL (9.6-12.0); Monocytes # 0.5 10*3/uL (0.11-0.8); Monocytes % 7.2 % (1.7-12.7); Neutrophils # 4.6 10*3/uL (1.4-7.4); Neutrophils % 63.9 % (38.7-73.9); Platelet Count 194 T/CUMM (130-400); Red Blood Count 3.99 MC/CUMM (3.8-5.5); Red Cell Distribution Width 15.7 % (9.3-17.3); White Blood Count 7.1 T/CUMM (4-12)
[2017-03-15 05:44] LABS: Calcium 8.5 MG/DL (8.5-10.1); Osmolality,Calculated 281.1 MOS/KG (273-304); Potassium 3.8 MMOL/L (3.5-5.1)
[2017-03-15] MEDS: IPRATROPIUM 500 MCG/2.5 ML NEB RESP TX SCH ×4 (07:06→20:27)
--- NOTE | 2017-03-15 10:19 | Cardiology Progress Note ---
Assessment and Plan (1) Cerebrovascular accident involving posterior circulation Status: Acute Assessment and plan: He is stable post acute CVA. Echocardiogram has been obtained, and cardiology is consulted to see patient for transesophageal echocardiogram to evaluate for possible embolic source for CVA. Xarelto therapy initiated on March 12. 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 We will continue as present. Current Visit: Yes (5) Dyslipidemia Status: Chronic Assessment and plan: Statin has been continued. Fasting lipid panel March 12 unremarkable. Current Visit: Yes (6) CAD (coronary artery disease) Status: Chronic Assessment and plan: No clinical findings for acute coronary syndrome. Beta-shaina, statin are continued. Current Visit: Yes (7) History of coronary artery bypass graft Status: Chronic Assessment and plan: This appears stable. Current Visit: Yes Cardiology - PN: Subj Interval history: The patient continues much more alert and responsive and conversant today. He is actually up and walking some according to the family. He is for transesophageal echo tomorrow and then for transfer to rehab. Exam (Progress Note) - Constitutional Vitals: Period Temp Pulse Resp BP Sys/Covarrubias Pulse Ox Last 24 Hr 98.1 F-99 F 61-88 16-20 120-153/65-80 90-99 Exam: General:no acute distress. alert and oriented, mood and affect are normal HEENT: no new lesions, sclerae are clear, mouth and pharynx benign Neck: supple, trachea midline, no JVD noted Lungs: no rales ronchi or wheeze is noted. pt comfortable without accesory muscle use to assist with breathing CV: RRR no murmur rub or gallop is noted. Abd: soft and nontender, BSNA, no masses. Ext: no cyanosis, clubbing or edema Neuro: grossly intact without focal neurologic deficit. Result/EKG - Labs CBC & BMP: 03/15/17 05:00 03/15/17 05:00 Labs: Laboratory Results - last 24 hr 03/15/17 03/15/17 05:00 05:00 WBC 7.1 RBC 3.99 Hgb 12.2 L Hct 38.2 L MCV 95.7 MCH 31 MCHC 31.9 L RDW 15.7 Plt Count 194 MPV 9.4 L Neut % (Auto) 63.9 Lymph % (Auto) 20.9 L Bacon % (Auto) 7.2 Eos % (Auto) 7.3 Baso % (Auto) 0.6 Neut # (Auto) 4.6 Lymph # (Auto) 1.5 Bacon # (Auto) 0.5 Eos # (Auto) 0.5 Baso # (Auto) 0.0 Immature Gran % 0.1 Nucleated RBC % 0.0 Immature Gran # 0.01 Nucleated RBCs # 0.00 Sodium 142 Potassium 3.8 Chloride 107 Carbon Dioxide 26 Anion Gap 12.8 BUN 9 Creatinine 0.90 GFR Calculation 107 BUN/Creatinine Ratio 10.00 Glucose 101 Calculated Osmolality 281.1 Calcium 8.5 Specialty Discharge - Follow Up or Referrals Follow up with: Joel Cruz DO [Physician] - (post dischaarge from rehab )
[2017-03-15] MEDS: PANTOPRAZOLE 40 MG TABLET PO SCH (10:44)
[2017-03-15] MEDS: MULTIVITAMIN (CENTRUM) TABLET PO SCH (10:44)
[2017-03-15] MEDS: MECLIZINE 25 MG TABLET PO SCH ×2 (10:44→20:45)
--- NOTE | 2017-03-15 11:08 | Family Practice Progress Note ---
Family Practice - PN: Subj Interval history: Family feels that patient continues to slowly improve. They still do not think he is back to 100%. Both sons and state that patient has had a progressive decline over the last several weeks to months. They states that he frequently becomes confused and forgetful. Spent significant time discussing in detail. Very likely that patient is developing a component of dementia. Patient scheduled for transesophageal echo in a.m.. We will otherwise continue present evaluation and treatment Exam (Progress Note) - Constitutional Vitals: Period Temp Pulse Resp BP Sys/Covarrubias Pulse Ox Last 24 Hr 97.6 F-99 F 57-88 16-20 120-153/65-80 90-99 Results - Labs CBC & BMP: 03/15/17 05:00 03/15/17 05:00 Specialty Discharge - Follow Up or Referrals Follow up with: Joel Cruz DO [Physician] - (post dischaarge from rehab )
[2017-03-15] MEDS: POTASSIUM CHLORIDE INJ 10 MEQ in SODIUM CHLORIDE 0.9% 1,000 ML IV SCH (14:26)
[2017-03-15] MEDS: RIVAROXABAN 20 MG TABLET PO SCH (17:21)
[2017-03-15] MEDS: PRAVASTATIN 40 MG TABLET PO SCH (20:44)
[2017-03-15] MEDS: METOPROLOL TARTRATE 50 MG TABLET PO SCH (20:44)
[2017-03-15] MEDS: LOSARTAN 50 MG TABLET PO SCH (20:44)
[2017-03-16] MEDS: POTASSIUM CHLORIDE INJ 10 MEQ in SODIUM CHLORIDE 0.9% 1,000 ML IV SCH (03:30)
[2017-03-16] MEDS: IPRATROPIUM 500 MCG/2.5 ML NEB RESP TX SCH ×2 (07:22→11:29)
--- NOTE | 2017-03-16 07:56 | Cardiology Progress Note ---
Assessment and Plan (1) Cerebrovascular accident involving posterior circulation Status: Acute Assessment and plan: Patient is for transesophageal echocardiogram as described above. Discussed procedure as already noted above is well. Current Visit: Yes (2) Hypertension Status: Chronic Assessment and plan: This is fairly stable at this time. Current Visit: Yes (3) Dyslipidemia Status: Chronic Assessment and plan: On statin drug. Current Visit: Yes (4) CAD (coronary artery disease) Status: Chronic Assessment and plan: Clinically stable without angina. Current Visit: Yes (5) History of coronary artery bypass graft Status: Chronic Current Visit: Yes Cardiology - PN: Subj Interval history: Patient is awake alert today doing fairly well. Reviewing the chart apparently he has had CVA. Is progressing more walking according to family. The patient is for transesophageal echocardiogram today before transfer to rehab. I discussed transesophageal echocardiogram with the patient and his . I reviewed indication the procedure as well as how we would carry this procedure out. I reviewed the risk which are including but not limited to esophageal or gastric rupture requiring surgical intervention as well as the possibility of aspiration pneumonia requiring treatment. He does not have any issues or symptoms of dysphagia. We will plan on carrying this out today. Exam (Progress Note) - Constitutional Vitals: Period Temp Pulse Resp BP Sys/Covarrubias Pulse Ox Last 24 Hr 97.5 F-98.7 F 57-83 14-20 127-152/65-79 90-99 Exam: General appearance: Overweight, no acute distress HEENT exam: normal inspection, atraumatic Neck exam: normal inspection no JVD. No carotid bruit. Trachea is in midline Respiratory/lungs exam: clear to auscultation bilaterally anteriorly, good air movement. Cardiovascular exam: regular rate and rhythm, no murmur or gallop or rub. No precordial lift. Chest wall exam: nontender GI/Abdominal exam: normal bowel sounds, soft, nontender, no abdominal bruits or pulsatile masses. Extremeties/musculoskeletal: normal inspection without edema or cyanosis. Neurological exam: alert, oriented X3, no focal deficits Psychiatric exam: normal affect, normal mood. Cognitive function is grossly normal. Skin exam: normal color, warm Result/EKG - Labs CBC & BMP: 03/15/17 05:00 03/15/17 05:00 Lab Results: I have reviewed the past 24 hour labs Specialty Discharge - Follow Up or Referrals Follow up with: Joel Cruz DO [Physician] - (post dischaarge from rehab )
--- NOTE | 2017-03-16 08:16 | History and Physical Update ---
History and Physical Update - History and Physical H&P was reviewed, the patient examined and there: are no changes in the patients condition since last H&P was completed. - Dictation Physical: refer to H&P completed by admitting physician - Physical Exam Mental Status: alert and oriented Heart: regular rate and rhythm Lung: clear to auscultation Abdomen: within normal limits Vitals: within normal limits History and Physical Changes: None
[2017-03-16] MEDS ORDERED: PROPOFOL 200 MG/20 ML VIAL IV ONE (08:33)
[2017-03-16] MEDS ORDERED: LIDOCAINE 2% 5 ML VIAL ONE (08:33)
--- NOTE | 2017-03-16 08:55 | Cardiology Operative Report ---
Date of Procedure:: 03/16/17 Pre-op diagnosis: CVA with possible cardiac embolic source. Post-op diagnosis: other (No intracardiac mass or thrombi seen.) Procedure: History: 69-year-old man who apparently has had a posterior stroke question embolic phenomena. He has atrial fibrillation on Xarelto. He has requested that the patient had no transesophageal echocardiogram. We evaluated the patient today and agree. Pre-Op diagnosis: CVA question embolic phenomena with heart being source. Postop diagnosis: No shunt or embolic source noted in the cardiac structures. Sedation/anesthesia: MAC per anesthesia. Description of procedure: After informed consent the patient brought to the catheterization laboratory area where the patient had topical anesthesia with Cetacaine. MAC per anesthesia. Transesophageal probe was advanced with gastric and transesophageal views obtained. We had no immediate complications. We do not see a gross source for emboli. We did not see any gross shunt. For details please see the transesophageal echocardiogram report dictated separately. There was no immediate complications. Implants: None Anesthesia: MAC Surgeon / Physician: Dagoberto Myrick Order Entry: none Estimated blood loss: none Specimens: none sent Condition: stable Disposition: floor
--- NOTE | 2017-03-16 09:11 | Neurology Progress Note ---
Neurology - PN : Subjective Interval history: Patient seems to be doing a little better. Walking slightly better. CT angiogram and OLVIN is pending Exam (Progress Note) - Constitutional Vitals: Period Temp Pulse Resp BP Sys/Covarrubias Pulse Ox Last 24 Hr 97.5 F-98.7 F 62-83 14-20 127-152/65-79 90-99 Exam: GENERAL: Patient is in no acute distress. NECK: Neck is supple. There is no JVD. No carotid bruits present. No thyroid masses. CVS: First and second heart sounds are normal. There is no S3 present. Regular rate and rhythm. RESPIRATORY: Lungs are clear to auscultation without any rales or rhonchi. ABDOMEN: Soft and non-tender. Bowel sounds are present. There is no hepatosplenomegaly. EXT: There is no palpable edema. Peripheral pulses are present. Skin: No rashes Central Nervous system: General: Alert, awake and Oriented x 3 Speech: Fluent Comprehension: Intact and normal Facial expressions: Normal Cranial Nerves: CN1/Olfactory: Normal CN II/ Optic: Normal, Visual Irving unreliable CN III, and : AILYN & EOMI, bilateral horizontal sustained end gaze nystagmus CN V: Normal & intact CN VII: face is symmetric CNVIII: Normal CN XI/X/XI/XII: Intact and Normal Motor: Bulk and Tone is normal. Strength in the right 5/5 Strength in the left 5/5 Sensory: Grossly intact for all the modalities of PP, LT and temp sense Reflexes: 1+ and symmetrical Cerebellar function: Normal finger to nose and heel to silva testing. Toes: Equivocal Gait: Markedly broad-based gait. Significant ataxia during walking Results - Labs CBC & BMP: 03/15/17 05:00 03/15/17 05:00 Assessment and Plan (1) Cerebrovascular accident involving posterior circulation Status: Acute Assessment and plan: Continue Xarelto [address] mg [address] daily For CT angiogram and OLVIN today. Followed by TMR placement Current Visit: Yes (2) S/P ventriculoperitoneal shunt Status: Chronic Assessment and plan: This was placed in 1980s and shunt seems to be working well Current Visit: Yes Specialty Discharge - Follow Up or Referrals Follow up with: Joel Cruz DO [Physician] - (post dischaarge from rehab )
--- NOTE | 2017-03-16 09:46 | Anesthesia Post-Op ---
Anesthesia Post OP - Post Ansesthetic Evaluation Patient seen in post op: Yes Resp: within normal limits CV: within normal limits Mental: within normal limits Temp: within normal limits [id number]: within normal limits Nausea and Vomiting: within normal limits Pain: within normal limits
--- NOTE | 2017-03-16 11:13 | Event Note ---
Patient is doing well post transesophageal echocardiogram. In fact he is standing doing some physical therapy with PT. I discussed with he and his the findings of the transesophageal echocardiogram. Again he had no significant pathology. He is doing well post procedure. Hopefully he will be able to go to [facility]hab soon.
[2017-03-16] MEDS: MECLIZINE 25 MG TABLET PO SCH (11:21)
[2017-03-16] MEDS: PANTOPRAZOLE 40 MG TABLET PO SCH (11:22)
[2017-03-16] MEDS: MULTIVITAMIN (CENTRUM) TABLET PO SCH (11:22)
[2017-03-16 12:11] VITALS: BP 150/68
[2017-03-16] MEDS ORDERED: MAGNESIUM HYDROXIDE SUSP 30 ML UDCUP PO PRN (15:17)
--- NOTE | 2017-03-16 15:21 | CT Report ---
CT angio head Indication: Stroke. CT ANGIOGRAM SOBOBA OF MIJARES DLP: 800 mGy*cm. One or more of the following dose reduction techniques was used: Automated exposure control, adjustment of the mA and/or kV according the patient size, or use of iterative reconstruction techniques. Technique: Axial thin cut CT images were obtained from the skull base to the vertex during arterial phase of contrast injection. 3-D vascular MIPs reconstructions and multiplanar reformats were evaluated. Omnipaque 350, 80 cc given. Comparison: None. Findings: Mild atheromatous disease of the intracranial segment of both ICA noted, primarily the cavernous segments. No critical stenosis of either side. No intracranial aneurysmal disease. MCA and CORNELIO vascular territories are symmetric. Both vertebral arteries terminate in the basilar system. Basilar artery is normal in size without aneurysmal change. It terminates in bilateral GM VIDEO. Venous structures of the brain are intact. A right transparietal ventriculostomy catheters again shown, in stable position from the study 03/13/2017. Severe mucosal thickening of the maxillary and ethmoid air cells persists. Impression: 1. 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 No flow cut off, aneurysmal disease or critical stenosis of the [place] shown. 2. Right transparietal ventriculostomy catheter. 3. 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 PROCEDURE INTERPRETED AT [facility] DEPARTMENT OF RADIOLOGY Final Report Signed by: Dagoberto Corea M.D.
--- NOTE | 2017-03-16 18:14 | ECHO Report ---
[facility] Exam Date: 03/16/2017 08:25 Referring Physician: Technologist: Cookie Chacko Age: 76 Ht (in): 74 Wt (lb): 212 Gender: M Exam Location: [facility] Echo Pre-op Dx: CVA ? cardiac embolus Post-op Dx: BP: 133 / 79 HR: 97 Rhythm: Sinus Technical Quality: Fair Specimens Taken None Devices Implanted None Medications See anesthesia report Complications None immediate Estimated Blood Loss None Proc. Components Transesophageal echocardiogram carried out from the gastric and transesophageal views. Gucci garcia today was carried out. IMPRESSIONS 1. Left ventricle is normal size and systolic function ejection fraction 55+%. There may be mild concentric left ventricular hypertrophy. 2. Left atrial may be mildly dilated. 3. Right-sided chambers appear to be grossly normal size. 4. There was no gross mass or thrombus noted in any of the cardiac chambers or atrial appendage. 5. Valvular structures were grossly unremarkable. Pulmonic valve was directly visualized. 6. There was no shunt demonstrated. MEASUREMENTS (Male / Female) Normal Values FINDINGS Left Ventricle Left ventricle is normal size and systolic function. No gross left ventricular hypertrophy noted. Ejection fraction 55+%. No mass or thrombus noted. Right Ventricle Right ventricle is probably normal size. No mass or thrombus noted. Right Atrium Right atrium is probably normal size. No mass or thrombus noted. Left Atrium Left atrial may be mildly dilated. There is no intracardiac mass or thrombus noted. LA Appendage There was no mass or other abnormality noted in the appendage. Doppler flow was present. IA Septum There is no shunt demonstrated on color Doppler nor by Gucci garcia study. Mitral Valve Mitral valve is anatomically overall functionally normal. Aortic Valve Aortic valve is tricuspid structure with normal motion and function. No gross Doppler normality. Tricuspid Valve Tricuspid valve with normal motion without any gross Doppler abnormalities. Pulmonic Valve Pulmonic valve was directly visualized. Pericardium No effusion appreciated. Aorta Aortic root as well as thoracic aorta unremarkable. It worse some mild intimal thickening. Dagoberto Myrick MD (Electronically Signed) Final Date: 16 March 2017 18:13
== END 2017-03-16 15:51 | DRG 66 ==
LOC: N.2E
PROVIDERS: ADMIT Family Medicine; ATTEND Family Medicine